=== PATIENT | female | born 1960 | race American Indian/Alaskan Native ===

== ENCOUNTER 2016-12-30 17:44 | Emergency (ER) | payer SELFPAY ==
[2016-12-30 17:59] VITALS: RESP 16
--- NOTE | 2016-12-30 18:07 | C.PDOC ---
History Of Present Illness 56 yr old female with PMHx of subarachnoid hemorrhage, previous cva presents to the ER with complaints of a headache, intermittently for 1 day. Patient states the pain is worse to the back of the head. However, states the pain has now resolved after taking Tylenol. Patient states she does not want lab work and is requesting a Ct of head. Patient denies fever, chest pain, SOB, nausea, vomiting , weakness or numbness. Time Seen by Provider: 12/30/16 18:02 Chief Complaint (Nursing): Headache History Per: Patient History/Exam Limitations: no limitations Onset/Duration Of Symptoms: Intermittent Episodes (1 day) Current Symptoms Are (Timing): Gone Preceeding Symptoms: None Past Medical History Reviewed: Historical Data, Nursing Documentation, Vital Signs Vital Signs: Last Vital Signs Temp 98.0 F 12/30/16 17:53 Pulse 84 12/30/16 17:53 Resp 16 12/30/16 17:53 BP 145/96 H 12/30/16 17:53 Pulse Ox 100 12/30/16 18:19 - Medical History PMH: HTN Family History: States: No Known Family Hx - Social History Hx Alcohol Use: No Hx Substance Use: No - Immunization History Hx Tetanus Toxoid Vaccination: No Hx Influenza Vaccination: No Hx Pneumococcal Vaccination: No Review Of Systems Except As Marked, All Systems Reviewed And Found Negative. Constitutional: Negative for: Fever Cardiovascular: Negative for: Chest Pain Respiratory: Negative for: Shortness of Breath Gastrointestinal: Negative for: Nausea, Vomiting Neurological: Positive for: Headache. Negative for: Weakness, Numbness Physical Exam - Physical Exam Appears: Non-toxic, No Acute Distress Skin: Warm, Dry, No Rash Head: Atraumatic, Normacephalic Eye(s): bilateral: Normal Inspection, PERRL, EOMI Oral Mucosa: Moist Neck: Normal, Normal ROM, Supple Chest: Symmetrical, No Tenderness Cardiovascular: Rhythm Regular, No Murmur Respiratory: Normal Breath Sounds, No Rales, No Rhonchi, No Wheezing Extremity: Normal ROM, No Swelling Neurological/Psych: Oriented x3, Normal Speech, Normal Motor ED Course And Treatment O2 Sat by Pulse Oximetry: 100 (RA) Pulse Ox Interpretation: Normal () Medical Decision Making Medical Decision Making: PLAN: * CT - Head FINDINGS: Brain: There is prominence of sulci gyri and ventricles. There is no midline shift. There is patchy decreased attenuation in periventricular white matter greatest on the right. There is streak artifact from a metallic foreign body adjacent to the left anterior communicating artery. There is a small left basal ganglia lacunar infarct, age-indeterminate. There is high left parietal encephalomalacia. There is focal encephalomalacia in the right basal ganglia. There are no focal masses. There are no focal hemorrhages. Edward-white differentiation is visualized. Ventricles: See above Bones: Cranial vault is intact. Soft tissues: unremarkable [facility] Radiology [facility] Final Radiology Report [id number] Name: DORENE CELIS Age: 56Years F Date: 12/30/2016 SSN: [id number] : 1960 Study: CT HEAD WO Requesting Physician: Daryl Arguello Images: 163 Addl Studies: Provided Clinical History: [facility] CONFIDENTIALITY STATEMENT This transmission is confidential and is intended to be a privileged communication. It is intended only for the use of the addressee. Access to this message by anyone else is unauthorized. If you are not the intended recipient, any disclosure, copying, distribution or any action taken, or omitted to be taken in reliance on it is prohibited and may be unlawful. If you received this communication in error, please notify us by telephone, so that return of this document to us can be arranged. Page 2 of 2 Sinuses: There is no acute sinusitis. Ears and mastoids: Middle ears and mastoids are unremarkable. Orbits: Orbital contents are unremarkable. IMPRESSION: Atrophy and small vessel disease; high left parietal encephalomalacia; age indeterminate basal ganglia infarcts; clip/coil the region of the [place]; no bleed 730: ct ne gfor bleeidng. suspect old infarcts. pt asking to be d/c. will advise outpt f/u and return precautions Disposition - Disposition Referrals: Liu Momin MD [Staff Provider] - Disposition: HOME/ ROUTINE Disposition Time: 19:31 Condition: STABLE Additional Instructions: please discuss your ct findings with your doctor/specialist. return to er with worsening symptoms or concerns. Instructions: Acute Headache (ED) Forms: [employer] (Malaysian) - Clinical Impression Clinical Impression: Headache - Scribe Statement The provider has reviewed the documentation as recorded by the Scribe Milli Robertson Provider Attestation: All medical record entries made by the Scribe were at my direction and personally dictated by me. I have reviewed the chart and agree that the record accurately reflects my personal performance of the history, physical exam, medical decision making, and the department course for this patient. I have also personally directed, reviewed, and agree with the discharge instructions and disposition.
--- NOTE | 2016-12-30 19:22 | CT ---
EXAM: CT Head Without Intravenous Contrast EXAM DATE/TIME: 12/30/2016 6:05 PM CLINICAL HISTORY: 56 years old, female; Pain; Headache; Headache not specified; Additional info: SMITH TECHNIQUE: Axial computed tomography images of the head/brain without intravenous contrast. All CT scans at this facility use one or more dose reduction techniques, viz.: automated exposure control; ma/kV adjustment per patient size (including targeted exams where dose is matched to indication; i.e. head); or iterative reconstruction technique. COMPARISON: There are no prior studies for comparison. FINDINGS: Brain: There is prominence of sulci gyri and ventricles. There is no midline shift. There is patchy decreased attenuation in periventricular white matter greatest on the right. There is streak artifact from a metallic foreign body adjacent to the left anterior communicating artery. There is a small left basal ganglia lacunar infarct, age-indeterminate. There is high left parietal encephalomalacia. There is focal encephalomalacia in the right basal ganglia. There are no focal masses. There are no focal hemorrhages. Edward-white differentiation is visualized. Ventricles: See above Bones: Cranial vault is intact. Soft tissues: unremarkable Sinuses: There is no acute sinusitis. Ears and mastoids: Middle ears and mastoids are unremarkable. Orbits: Orbital contents are unremarkable. IMPRESSION: Atrophy and small vessel disease; high left parietal encephalomalacia; age indeterminate basal ganglia infarcts; clip/coil the region of the [place]; no bleed
[2016-12-30 19:52] VITALS: BP 144/90; PULSE 75; TEMP 97.7; O2SAT 99
== END 2016-12-30 19:51 | disposition home or self-care (01) ==
LOC: C.ER 17:44
DX: R51 Headache (principal)